=== PATIENT | female | born 1985 | race Caucasian/White ===

== ENCOUNTER 2018-03-22 10:13 | Observation (INO) ==
[2018-03-22] MEDS ORDERED: Naloxone 0.4 MG/ML INJ IVP PRN (13:59)
--- NOTE | 2018-03-22 14:12 | OB/GYN Consult Note ---
Date of Encounter: 03/22/18 Past Med Surg Social Fam HX - Past Medical History Medical history: no medical history Psychiatric history: anxiety, bipolar, depression - Past Surgical History Surgical History: no surgical history - Social History Smoking Status: Never smoker Smokeless Tobacco Status: No Alcohol use: none Drug use: none - Family History Mother Living Status: Still Living Hx Family Endocrine Disorder: Yes (DM) Father Living Status: Still Living Hx Family Cardiac Disorders: Yes Medications and Allergies No Known Home Drugs 03/22/18 [History] Allergy/AdvReac Type Severity Reaction Status Date / Time No Known Allergies Allergy Verified 03/22/18 12:13 Exam - Vital Signs Vital signs: Initial Vital Signs Temp Pulse Resp BP 98.2 F 107 14 130/89 03/22/18 12:29 03/22/18 12:29 03/22/18 12:29 03/22/18 12:29 Results All other labs normal. Consult Discharge Plan - Plan Referrals: NONE,PCP [Primary Care Provider] -
--- NOTE | 2018-03-22 14:18 | Internal Med History&Physical ---
Date of Encounter: 03/22/18 Time of Encounter: 01:30 Internal Medicine - H&P: HPI Chief complaint: Hyperemesis Admitted From: Emergency Dept Plans for Post Hospital Care: Home History of present illness: Ms. Vicente is a 33 year old female who stated that she is 5 weeks . She has no significant past medical history. She presents with complain of emesis which started 7 days ago and getting worse. She has not been able to keep food and liquids down , her home remedies including star could not help much.. She endorsed vomiting about 4 times while at the Ed. She denies headache, chest and abdominal pain. [facility] has been consulted to see patient. Past Med Surg Social Fam HX - Past Medical History Medical history: no medical history Psychiatric history: anxiety, bipolar, depression - Past Surgical History Surgical History: no surgical history - Social History Smoking Status: Never smoker Smokeless Tobacco Status: No Alcohol use: none Drug use: none - Family History Mother Living Status: Still Living Hx Family Endocrine Disorder: Yes (DM) Father Living Status: Still Living Hx Family Cardiac Disorders: Yes Internal Medicine - H&P: Meds No Known Home Drugs 03/22/18 [History] Allergy/AdvReac Type Severity Reaction Status Date / Time No Known Allergies Allergy Verified 03/22/18 12:13 All Systems PM: A 10-system review of systems was performed and is negative for pertinent findings except as documented above in the HPI. - Gastrointestinal Gastrointestinal: nausea, vomiting - Constitutional Vitals: Temp Pulse Resp BP 98.2 F 107 14 130/89 03/22/18 12:29 03/22/18 12:29 03/22/18 12:29 03/22/18 12:29 General appearance: Present: A&O X 3, no acute distress Exam: Exam: Vitals: Reviewed General: Well developed and well appearing sitting up in bed in no acute distress. Skin: Pale, warm, dry. HEENT: Moist mucous membranes. (+) conjunctivae pallor. Neck: No lymphadenopathy. No JVD. No carotid bruits. No palpable thyroid. Chest: Normal thoracic expansion. Shortness of breath Mild expiratory wheezes audible. Heart: Normal S1 & S2; rhythmic. 3/6 systolic murmur in all foci. Abdomen: Non-distended, soft and non-tender to palpation. No peritoneal reaction. Extremities: No clubbing, cyanosis. no leg edema. No calf tenderness. Normal distal pulses. Neurological: Awake, alert and oriented to person, place and time. No focal deficits. Psych: Affect appropriate. - GI/Abdominal GI/Abdominal exam: Present: normal bowel sounds - Time Spent With Patient Total time spent is greater than 50% in coordination of care (as documented) at patient's floor/unit and/or counseling patient:
[2018-03-22 15:06] LABS: Hematocrit 35.1 % (35.3-44.9); Hemoglobin 11.2 g/dL (11.5-15.4); Mean Corpuscular HGB Conc 31.9 g/dL (31.6-35.5); Mean Corpuscular Hemoglobin 25.4 pg (28.0-33.3); Mean Corpuscular Volume 79.6 fL (83.0-100.0); Mean Platelet Volume 9.2 fL (9.4-12.4); Platelet Count 203 K/mcL (140-400); Red Blood Count 4.41 M/mcL (3.82-4.97); Red Cell Distribution Width 15.3 % (11.5-14.5)
[2018-03-22 15:33] LABS: BUN/Creatinine Ratio 8 (6-26); Blood Urea Nitrogen 5 mg/dL (6-20); Calcium 8.8 mg/dL (8.6-10.3); Carbon Dioxide 23 mEq/L (23-29); Chloride 106 mEq/L (98-107); Glucose 98 mg/dL (70-105); Osmolality,Calculated 283 (280-300); Potassium 3.8 mEq/L (3.5-5.1); Sodium 138 mEq/L (136-145); eGFR For Non-African Americans > 60 (> 60)
[2018-03-22] MEDS: Ondansetron 4 MG/2 ML VIAL IVP SCH ×2 (15:36→20:07)
[2018-03-22 18:59] VITALS: BP 117/75
--- NOTE | 2018-03-22 19:05 | OB/GYN Consult Note ---
Date of Encounter: 03/22/18 Time of Encounter: 19:02 Assessment and Plan (1) Fourth Current Visit: Yes Status: Acute Patient reports she is approximately 5 1/2 weeks . Beta HCG ordered as no UPT or quant available at time of exam. She has an appointment for initial OB visit with [facility] on 04/09/[address] Andrew. Discharge home with ordered medications and follow up as scheduled unless vomiting is uncontrolled in which case patient should return to ER for evaluation. (2) Nausea and vomiting during prior to 22 weeks gestation Current Visit: Yes Status: Acute Patient able to tolerate light dinner tonight with no vomiting after approximately 30 minutes at time of exam. She is voiding without difficulty and without nausea at this time. Send home with Diclegis tid scheduled, Phenergan suppositories q6h scheduled, and Zofran ODT q6h for breakthrough nausea. Phenergan and Zofran RX sent electronically to pharmacy on file. Patient was prescribed Diclegis several days ago and will need to increase frequency to tid instead of bid as ordered. Patient is made aware of risk of heart defect with Zofran use in first trimester. Follow up with Dr. Andrew on 04/09/18 as scheduled at which time paperwork can be initiated for Zofran pump if needed. Discharge home this evening. History of Present Illness Consult date: 03/22/18 Reason for consult: other (hyperemesis) Chief complaint: N/V x 1 week in History of present illness: [employer] service consulted for patient reporting 5 weeks with nausea/vomiting x 7 days. She states she required a Zofran pump with all previous pregnancies due to the same issue. She states she has tried Dicelgis, rectal Phenergan and ODT Zofran previously but the Zofran pump is the only thing that helped her to be able to keep fluids down. Consulted with Dr. Andrew on plan for discharge and medication plan. See A/P for recommendations. Past Med Surg Social Fam HX - Past Medical History Medical history: no medical history Psychiatric history: anxiety, bipolar, depression - Past Surgical History Surgical History: no surgical history - Social History Smoking Status: Never smoker Smokeless Tobacco Status: No Alcohol use: none Drug use: none - Family History Mother Living Status: Still Living Hx Family Endocrine Disorder: Yes (DM) Father Living Status: Still Living Hx Family Cardiac Disorders: Yes Medications and Allergies Ondansetron [Zofran ODT] 8 mg SL Q8H PRN #60 tab 03/22/18 [Rx] Promethazine [Phenergan] 25 mg RC Q6HR #72 supp.rect 03/22/18 [Rx] Allergy/AdvReac Type Severity Reaction Status Date / Time No Known Allergies Allergy Verified 03/22/18 12:13 Review of Systems Constitutional: as per HPI Nose, mouth and throat: as per HPI Gastrointestinal: as per HPI Genitourinary Female: as per HPI Menstruation: amenorrhea Exam - Vital Signs Vital signs: Initial Vital Signs Temp Pulse Resp BP 98.2 F 107 14 130/89 03/22/18 12:29 03/22/18 12:29 03/22/18 12:29 03/22/18 12:29 - Constitutional Constitutional: well developed, well nourished, no acute distress Results Result Diagrams: 03/22/18 14:24 03/22/18 14:24 Abnormal lab results Hgb 11.2 g/dL (11.5-15.4) L 03/22/18 14:24 Hct 35.1 % (35.3-44.9) L 03/22/18 14:24 MCV 79.6 fL (83.0-100.0) L 03/22/18 14:24 MCH 25.4 pg (28.0-33.3) L 03/22/18 14:24 RDW 15.3 % (11.5-14.5) H 03/22/18 14:24 MPV 9.2 fL (9.4-12.4) L 03/22/18 14:24 BUN 5 mg/dL (6-20) L 03/22/18 14:24 All other labs normal. Consult Discharge Plan - Plan Referrals: NONE,PCP [Primary Care Provider] - Prescriptions: Promethazine [Phenergan] 25 mg RC Q6HR #72 supp.rect Ondansetron [Zofran ODT] 8 mg SL Q8H PRN #60 tab PRN Reason: Breakthrough nausea/vomiting
--- NOTE | 2018-03-22 20:45 | Event Note ---
Date of Encounter: 03/22/18 Time of Encounter: 20:03 Notified by nurse of patient requesting to leave AMA because she thought she was going to be discharged today. Discussed with patient at bedside. Advised leaving AMA could result in worsening symptoms and or . AMA form signed with patient and nurse at bedside. Nurse instructed to remove IV prior to patient leaving AMA.
== END 2018-03-22 20:45 | disposition left against medical advice (07) ==
LOC: 3BNU
PROVIDERS: ADMIT Internal Medicine; ATTEND Internal Medicine

== ENCOUNTER → 2018-09-29 01:05 | Observation (INO) ==
[2018-09-28 21:51] LABS: Bilirubin,Urine Small (Negative); Blood,Urine Negative (Negative); Clarity,Urine Cloudy (Clear); Color,Urine Dark Yellow (Yellow); Glucose,Urine (UA) Normal (Normal); Ketones,Urine Negative (Negative); Leukocyte Esterase,Urine Small (Negative); Nitrite,Urine Negative (Negative); PH,Urine 5.5 pH Units (5.0-8.0); Protein,Urine Trace mg/dL (Neg-Trace); Urobilinogen,Urine Normal (Normal)
[2018-09-28 21:53] LABS: Bacteria,Urine Few per hpf (None-Few); RBC,Urine 0-3 per hpf (0-3); Squamous Epithelial Cell,Urine Many per lpf (None-Few)
--- NOTE | 2018-09-28 22:19 | OB/GYN Progress Note ---
Date of Encounter: 09/29/18 Time of Encounter: 22:16 - Assessment and Plan (1) 32 weeks gestation of Current Visit: Yes Status: Acute (2) Encounter for suspected PROM, with rupture of membranes not found Current Visit: Yes Status: Acute Speculum exam shows normal thick white discharge of , negative pooling, ferning negative. Contractions noted on monitoring, will give oral and IV hydration Urine very concentrated we will encourage hydration UA sent (3) labor in second trimester with delivery in second trimester Current Visit: Yes Status: Acute Cervical change to 2-3cm/thick/high per RN Discussed with Dr. Garcia Transfer to [facility], start betamethasone and give procardia PO discussed with M fellow inspector conveyor line Dr. Cam who accepted the transfer Qualifiers: Fetus number: single or unspecified fetus Qualified Code(s): O60.12X0 - labor second trimester with delivery second trimester, not applicable or unspecified Subjective - Subjective Interval history: 32+4 weeks gestation, PIH and to triage with complaints of abdominal tightening, and leaking of fluid since 7 PM. Patient state she has been having continual leaking of fluid since 11 PM, has gone through 1 pad. Reports good movement, denies vaginal bleeding Antepartum ROS: loss of fluid, movement normal, contractions, no vaginal bleeding Objective - Vital Signs Vital Signs: Intake and Output 09/28/18 09/28/18 09/28/18 07:59 15:59 23:59 Other: Weight 121.109 kg Patient Weight 09/28/18 23:59 Weight 121.109 kg - Exam FHR: auscultation normal FHR comments: Baseline 135 Abdomen: Present: soft, gravid Cervical dilation: 1.5/thick/very high Comments: SSE shows normal thick white discharge of , negative pooling - Labs Labs: Abnormal lab results Urine Clarity Cloudy (Clear) A 09/28/18 21:45 Ur Specific [place] 1.030 (1.010-1.025) H 09/28/18 21:45 Urine Bilirubin Small (Negative) H 09/28/18 21:45 Ur Leukocyte Esterase Small (Negative) H 09/28/18 21:45 Urine Microscopic WBC 5-15 per hpf (0-3) H 09/28/18 21:45 Ur Squamous Epith Cells Many per lpf (None-Few) H 09/28/18 21:45 Ur Culture Indicated? YES (NO) A 09/28/18 21:45
[2018-09-28 23:53] LABS: Amphetamine Screen,Urine Negative ng/mL (Cutoff=1000); Barbiturate Screen,Urine Negative ng/mL (Cutoff=200); Benzodiazepines Screen,Urine Negative ng/mL (Cutoff=200); Cannabinoid Screen,Urine Negative ng/mL (Cutoff = 50); Cocaine Screen,Urine Negative ng/mL (Cutoff= 300); Opiate Screen,Urine Negative ng/mL (Cutoff=300); Phencyclidine Screen,Urine Negative ng/mL (Cutoff=25)
--- NOTE | 2018-09-29 00:17 | OB/GYN History & Physical ---
Date of Encounter: 09/29/18 Time of Encounter: 00:06 Assessment and Plan (1) 32 weeks gestation of Current visit: Yes Status: Acute (2) Encounter for suspected PROM, with rupture of membranes not found Current visit: Yes Status: Acute Speculum exam shows normal thick white discharge of , negative pooling, ferning negative. Contractions noted on monitoring, will give oral and IV hydration 1L followed by 250/hr Urine very concentrated we will encourage hydration UA sent (3) labor in second trimester with delivery in second trimester Current visit: Yes Status: Acute Cervical change to 2-3cm/thick/high per RN Continues to have contractions q3-5 minutes apart, pt states feeling tightening, not painful, but aware when occurring. Discussed with Dr. Garcia Transfer to [facility], start betamethasone and give procardia PO Discussed with [facility] fellow airline reservation agent Dr. Cam who accepted the transfer Qualifiers: Fetus number: single or unspecified fetus Qualified Code(s): O60.12X0 - labor second trimester with delivery second trimester, not applicable or unspecified History of Present Illness Chief complaint: Contractions HPI: Ms. Vicente is a 33 year old female 32+4 weeks gestation, PIH and to triage with complaints of abdominal tightening, and leaking of fluid since 7 PM. Patient state she has been having continual leaking of fluid since 11 PM, has gone through 1 pad. Reports good movement, denies vaginal bleeding. care with Dr. Carbajal. complicated by bipolar disorder and has used multiple psychiatric medications during this currently on Zoloft, hyperemesis, maternal obesity, failed early 1 hour in early screening glucose monitoring of normal. Past Med Surg Social Fam HX - Past Medical History Medical history: no medical history Psychiatric history: anxiety, bipolar, depression - Past Surgical History Surgical History: no surgical history - Social History Smoking Status: Never smoker Smokeless Tobacco Status: No Alcohol use: none Drug use: none - Family History Mother Living Status: Still Living Hx Family Endocrine Disorder: Yes (DM) Father Adopted: No Family Member Ethnicity: Non- Living Status: Still Living Hx Family Cardiac Disorders: No Hx Family Respiratory Disorders: No Hx Family Cancer: No Hx Family GI Disorders: No Hx Family Endocrine Disorder: No Hx Family Neuromuscular Disorders: No Hx Family Neurologic Disorders: No Hx Family HEENT Disorders: No Hx Family Autoimmune Disorders: No Obstetrical History - Pregnancies : 4 Para: 2 Term: 2 : 0 Ab's: 1 Livin Medications and Allergies Ondansetron [Zofran ODT] 8 mg SL Q8H PRN #60 tab 03/22/18 [Rx] Lurasidone [Latuda] 20 mg PO DAILY 09/28/18 [History] Allergy/AdvReac Type Severity Reaction Status Date / Time No Known Allergies Allergy Verified 09/28/18 21:25 Exam - Constitutional Constitutional: no acute distress, morbidly obese - Abdomen Abdomen: Present: gravid, non tender - Extremities Extremities exam: normal capillary refill, normal inspection - Cervix Dilation: 2 (2-3 per RN) Effacement: 0 Station: -4 Results Abnormal lab results Urine Clarity Cloudy (Clear) A 09/28/18 21:45 Ur Specific [place] 1.030 (1.010-1.025) H 09/28/18 21:45 Urine Bilirubin Small (Negative) H 09/28/18 21:45 Ur Leukocyte Esterase Small (Negative) H 09/28/18 21:45 Urine Microscopic WBC 5-15 per hpf (0-3) H 09/28/18 21:45 Ur Squamous Epith Cells Many per lpf (None-Few) H 09/28/18 21:45 Ur Culture Indicated? YES (NO) A 09/28/18 21:45 All other labs normal. - VTE Reasons for not Prescribing Prophylaxis: Treatment not Indicated - Low risk for VTE
[~2018-09-29 01:05] MED LIST: Betamethasone Acet/SodPhos 30 MG/5 ML VIAL IM SCH; NIFEdipine 10 MG CAPSULE PO SCH; Ringers Solution, Lactated 1,000 ML IVC ONE; Ringers Solution, Lactated 1,000 ML ONE
== END | disposition other institution (70) ==
LOC: 1NENULAB
PROVIDERS: ADMIT Advanced Practice Midwife; ATTEND Advanced Practice Midwife

== ENCOUNTER → 2018-10-09 15:38 | Observation (INO) ==
[2018-10-09] MEDS: Ondansetron 4 MG/2 ML VIAL IVP PRN ×2 (12:18→13:32)
[2018-10-09 12:26] LABS: Basophils % 0.3 %; Hematocrit 32.4 % (35.3-44.9); Hemoglobin 10.2 g/dL (11.5-15.4); Immature Granulocytes % 1.2 % (0-4); Lymphocytes # 1.4 K/mcL (0.6-4.6); Lymphocytes % 12.7 %; Mean Corpuscular HGB Conc 31.5 g/dL (31.6-35.5); Mean Corpuscular Hemoglobin 24.7 pg (28.0-33.3); Mean Corpuscular Volume 78.5 fL (83.0-100.0); Mean Platelet Volume 10.1 fL (9.4-12.4); Monocytes # 0.6 K/mcL (0.0-1.3); Monocytes % 5.7 %; Neutrophils # 8.6 K/mcL (1.6-8.9); Platelet Count 177 K/mcL (140-400); Red Blood Count 4.13 M/mcL (3.82-4.97); Red Cell Distribution Width 15.9 % (11.5-14.5); Segmented Neutrophils % 80.1 %; White Blood Count 10.7 K/mcL (4.3-11.1)
[2018-10-09 12:27] LABS: Bilirubin,Urine Small (Negative); Blood,Urine Negative (Negative); Clarity,Urine Cloudy (Clear); Color,Urine Dark Yellow (Yellow); Glucose,Urine (UA) Normal (Normal); Ketones,Urine Negative (Negative); Leukocyte Esterase,Urine Moderate (Negative); Nitrite,Urine Negative (Negative); Protein,Urine Trace mg/dL (Neg-Trace); Specific Gravity,Urine 1.022 (1.010-1.025); Urobilinogen,Urine Normal (Normal)
[2018-10-09 12:29] LABS: Bacteria,Urine Moderate per hpf (None-Few); Squamous Epithelial Cell,Urine Many per lpf (None-Few); WBC,Urine 15-30 per hpf (0-3)
[2018-10-09 12:42] LABS: Mucus,Urine Moderate (Few)
[2018-10-09 12:44] LABS: BUN/Creatinine Ratio 13 (6-26); Blood Urea Nitrogen 6 mg/dL (6-20); Calcium 8.7 mg/dL (8.6-10.3); Carbon Dioxide 18 mEq/L (23-29); Chloride 106 mEq/L (98-107); Glucose 90 mg/dL (70-105); Osmolality,Calculated 275 (280-300); Sodium 134 mEq/L (136-145); eGFR For African Americans > 60 (> 60); eGFR For Non-African Americans > 60 (> 60)
[2018-10-09 14:07] LABS: Amphetamine Screen,Urine Negative ng/mL (Cutoff=1000); Barbiturate Screen,Urine Negative ng/mL (Cutoff=200); Benzodiazepines Screen,Urine Negative ng/mL (Cutoff=200); Cannabinoid Screen,Urine Negative ng/mL (Cutoff = 50); Cocaine Screen,Urine Negative ng/mL (Cutoff= 300); Opiate Screen,Urine Negative ng/mL (Cutoff=300); Phencyclidine Screen,Urine Negative ng/mL (Cutoff=25)
[~2018-10-09 15:38] MED LIST changes: -Betamethasone Acet/SodPhos 30 MG/5 ML VIAL IM SCH; +D5% in 0.45% NACL 1,000 ML IVC SCH; -NIFEdipine 10 MG CAPSULE PO SCH; +Ondansetron 4 MG/2 ML VIAL IVP PRN; -Ringers Solution, Lactated 1,000 ML IVC ONE; -Ringers Solution, Lactated 1,000 ML ONE; +Scopolamine Patch 1.5 MG PATCH.TD72 TD SCH
== END | disposition home or self-care (01) ==
LOC: 1NENULAB
PROVIDERS: ADMIT Advanced Practice Midwife; ATTEND Advanced Practice Midwife

== ENCOUNTER → 2018-10-13 14:20 | Observation (INO) ==
[2018-10-13 13:40] LABS: Amphetamine Screen,Urine Negative ng/mL (Cutoff=1000); Barbiturate Screen,Urine Negative ng/mL (Cutoff=200); Benzodiazepines Screen,Urine Negative ng/mL (Cutoff=200); Cannabinoid Screen,Urine Negative ng/mL (Cutoff = 50); Cocaine Screen,Urine Negative ng/mL (Cutoff= 300); Opiate Screen,Urine Negative ng/mL (Cutoff=300); Phencyclidine Screen,Urine Negative ng/mL (Cutoff=25)
[2018-10-13 13:43] LABS: Basophils % 0.3 %; Hematocrit 31.3 % (35.3-44.9); Hemoglobin 9.9 g/dL (11.5-15.4); Immature Granulocytes % 1.2 % (0-4); Lymphocytes # 1.3 K/mcL (0.6-4.6); Lymphocytes % 12.3 %; Mean Corpuscular HGB Conc 31.6 g/dL (31.6-35.5); Mean Corpuscular Hemoglobin 24.6 pg (28.0-33.3); Mean Corpuscular Volume 77.9 fL (83.0-100.0); Monocytes # 0.6 K/mcL (0.0-1.3); Monocytes % 5.6 %; Neutrophils # 8.2 K/mcL (1.6-8.9); Platelet Count 155 K/mcL (140-400); Red Blood Count 4.02 M/mcL (3.82-4.97); Red Cell Distribution Width 16.1 % (11.5-14.5); Segmented Neutrophils % 80.6 %; White Blood Count 10.1 K/mcL (4.3-11.1)
[2018-10-13 14:05] LABS: Alanine Aminotransferase 6 Units/L (7-52); Aspartate Amino Transferase 10 Units/L (13-39); BUN/Creatinine Ratio 14 (6-26); Blood Urea Nitrogen 7 mg/dL (6-20); Lactate Dehydrogenase 125 Units/L (140-271); Uric Acid 5.7 mg/dL (2.3-7.6); eGFR For African Americans > 60 (> 60); eGFR For Non-African Americans > 60 (> 60)
[2018-10-13 14:07] LABS: Protein/Creatinine Ratio,Urine 0.14 mg/mg (0.00-0.20)
== END | disposition home or self-care (01) ==
LOC: 1NENULAB
PROVIDERS: ADMIT Registered Nurse; ATTEND Registered Nurse

== ENCOUNTER 2018-10-18 07:28 | Inpatient (IN) ==
[2018-10-18] MEDS ORDERED: Lidocaine 1% 20 ML MDV INFILT PRN (08:06)
[2018-10-18] MEDS ORDERED: Famotidine 20 MG/2 ML VIAL IVP PRN (08:06)
[2018-10-18] MEDS ORDERED: *HR* Nalbuphine 10 MG/ML AMPUL IVP PRN (08:06)
[2018-10-18] MEDS ORDERED: Metoclopramide 10 MG/2 ML VIAL IVP PRN (08:06)
[2018-10-18] MEDS ORDERED: Naloxone 0.4 MG/ML INJ IVP PRN (08:06)
[2018-10-18] MEDS ORDERED: Ondansetron 4 MG/2 ML VIAL IVP PRN (08:06)
[2018-10-18] MEDS ORDERED: Penicillin G Potassium 5,000,000 UNIT in 0.9 % Sodium Chloride Mini Bag 100 ML IVPB ONE (08:14)
[2018-10-18 09:00] LABS: Basophils % 0.1 %; Hematocrit 31.7 % (35.3-44.9); Hemoglobin 10.1 g/dL (11.5-15.4); Immature Granulocytes % 1.3 % (0-4); Lymphocytes # 1.2 K/mcL (0.6-4.6); Lymphocytes % 11.3 %; Mean Corpuscular HGB Conc 31.9 g/dL (31.6-35.5); Mean Corpuscular Volume 78.5 fL (83.0-100.0); Mean Platelet Volume 9.7 fL (9.4-12.4); Monocytes # 0.5 K/mcL (0.0-1.3); Monocytes % 4.9 %; Neutrophils # 8.8 K/mcL (1.6-8.9); Platelet Count 139 K/mcL (140-400); Red Blood Count 4.04 M/mcL (3.82-4.97); Red Cell Distribution Width 16.4 % (11.5-14.5); Segmented Neutrophils % 82.4 %; White Blood Count 10.6 K/mcL (4.3-11.1)
[2018-10-18] MEDS ORDERED: Epidural Premix (fent/bupiv) 110 ML EP SCH ×2 (09:00→10:30)
[2018-10-18] MEDS ORDERED: miSOPROStoL 25 MCG TABLET PO PRN (09:29)
[2018-10-18] MEDS: Ringers Solution, Lactated 1,000 ML IVC SCH ×2 (09:52→17:29)
[2018-10-18] MEDS: Penicillin G Potassium 2,500,000 UNIT in 0.9 % Sodium Chloride 100 ML IVPB SCH ×3 (13:47→21:56)
[2018-10-18] MEDS: Oxytocin 20 units/ LR 1000 mL 20 UNIT/1,000 ML BAG IVC SCH (20:27)
[2018-10-19] MEDS: Penicillin G Potassium 2,500,000 UNIT in 0.9 % Sodium Chloride 100 ML IVPB SCH (02:34)
[2018-10-19] MEDS ORDERED: *HR* Ropivacaine/PF 0.5% 20 ML VIAL ONE (04:04)
[2018-10-19] MEDS ORDERED: *HR* FentaNYL (PF) 100 MCG/2 ML VIAL ONE (04:20)
[2018-10-19] MEDS: Oxytocin 20 units/ LR 1000 mL 20 UNIT/1,000 ML BAG IVC SCH (07:42)
[2018-10-19] MEDS ORDERED: Ibuprofen 600 MG TABLET PO PRN (08:45)
[2018-10-19] MEDS ORDERED: Rho Immune Globulin 1,500 UNIT SYRINGE IM PRN (08:45)
[2018-10-19] MEDS ORDERED: Acetaminophen 325 MG TABLET PO PRN (08:45)
[2018-10-19] MEDS ORDERED: Oxytocin 20 units/ LR 1000 mL 20 UNIT/1,000 ML BAG IVC SCH (08:45)
[2018-10-19] MEDS ORDERED: Lanolin 7 G OINT...G. TP PRN (08:45)
[2018-10-19] MEDS ORDERED: Measles/Mumps/Rubella Vacc 0.5 ML VIAL SQ PRN (08:45)
[2018-10-19] MEDS ORDERED: Prenatal Vit/FA 1 EACH TABLET PO SCH (09:00)
[2018-10-20 08:43] VITALS: BP 121/81
== END 2018-10-20 11:45 | disposition home or self-care (01) | DRG 806 ==
LOC: 1NENULAB → OBSVTOIN 07:28 → 1NENULAB 09:33 → 1NENUOBS 10-19 09:13
PROVIDERS: ADMIT Registered Nurse; ATTEND Registered Nurse